=== PATIENT | female | born 1980 | race Caucasian/White ===

== ENCOUNTER 2018-01-11 05:11 | Inpatient (IN) ==
[~2018-01-11 05:11] MED LIST: Naloxone 0.4 MG/ML INJ IVP PRN
--- NOTE | 2018-01-11 05:28 | Internal Med History&Physical ---
<Michael Craven - Last Filed: 01/11/18 05:40> Date of Encounter: 01/11/18 Time of Encounter: 05:24 Internal Medicine - H&P: HPI Chief complaint: Abdominal pain Admitted From: Home Plans for Post Hospital Care: Home History of present illness: Mrs. Byers is a 37-year-old female who presented to [facility] on 01/11/18 as a transfer from [facility] for the management of acute diverticula is. Patient reports that she developed severe abdominal pain on Tuesday, located in the left side of her abdomen. While at [facility], she was diagnosed with diverticulitis based on CT scan. She reported that her pain had not improved during her stay at the hospital. She was transferred to [place] due to the fact that [facility] did not have a GI specialist. Patient reported that she was treated with IV antibiotics and was given Olpe for pain control. She reported that her pain would subside for a few hours, but would return. Pain is constant, and is exacerbated by palpation. Patient also reports intermittent nausea and vomiting. Denies having any episodes of vomiting since her transfer to [place]. She currently denies having any fever or chills. Patient had an elevated white count 11.2 at [facility]. BUN/creatinine creatinine were within normal limits. During her stay at [facility], patient was treated with ciprofloxacin 400 mg IV every 12 hours, metronidazole IV every 8 hours, Protonix 40 mg IV once a day, acetaminophen 325 mg every 4 hours for mild pain, Olpe 5/325 by mouth every 6 hours for moderate pain. Patient was seen and examined at bedside this morning. Patient reports that she feels constant pain in the left side of her abdomen. She states that she had one previous episode of diverticulitis approximately 3 years ago, which she states was a small area that was inflamed in her colon. Patient also reports a history of ileus after receiving back surgery. Patient reports that her pain has not gotten much better since it started. Has not eaten anything since Tuesday. Currently denies having any shortness of breath, fever, chills, shortness of breath, nausea, vomiting, or diaphoresis. Patient has no further complaints at this time. Past Med Surg Social Fam HX - Past Medical History Medical history: other Psychiatric history: no psych history - Past Surgical History Surgical History: cholecystectomy, herniorrhaphy, orthopedic, other, other - Social History Smoking Status: Never smoker Smokeless Tobacco Status: No Alcohol use: occasionally Drug use: none - Family History Mother Living Status: Still Living Father Living Status: Still Living Internal Medicine - H&P: Meds No Known Home Drugs 01/26/16 [History] 3 Allergy/AdvReac Type Severity Reaction Status Date / Time codeine Allergy Rash Verified 12/01/15 09:43 morphine Allergy See Verified 01/11/18 03:38 Comments midazolam [From Versed] AdvReac See Verified 01/26/16 06:50 Comments All Systems PM: A 10-system review of systems was performed and is negative for pertinent findings except as documented above in the HPI. - Constitutional Constitutional: no chills, no fever(s), no night sweats - EENT Eyes: no change in vision, no discharge, no pain, no photophobia Ears: no ear discharge, no ear pain, no tinnitus Nose, mouth and throat: no dysphagia, no nasal discharge, no neck pain, no sore throat - Cardiovascular Cardiovascular ROS IM: no chest pain, no diaphoresis, no dyspnea, no lightheadedness, no palpitations, no syncope - Respiratory Respiratory: no cough, no dyspnea, no wheezing, no excessive phlegm production - Gastrointestinal Gastrointestinal: abdominal pain, no diarrhea, no hematemesis, no hematochezia, no melena, no nausea, no vomiting - Genitourinary Genitourinary: no change in urinary stream, no dysuria, no flank pain, no hematuria - Musculoskeletal Musculoskeletal ROS IM: no numbness, no tingling - Integumentary Integumentary IM: no rash, no unusual bruising - Neurological Neurological ROS: no confusion, no convulsions, no focal weakness, no numbness, no tingling, no tremor(s) - Hematologic/Lymphatic Hematologic/Lymphatic: no easy bruising - Constitutional Vitals: Temp Pulse Resp BP Pulse Ox 97.9 F 59 14 105/65 97 01/11/18 03:14 01/11/18 03:14 01/11/18 03:14 01/11/18 03:14 01/11/18 03:14 General appearance: Present: mild distress, A&O X 3 - Head Head exam: Present: atraumatic, normocephalic - Eye Eye exam: Present: PERRL, conjuntiva pink, sclera anicteric Pupils: Present: PERRL - Neck Neck exam general surgery: Present: supple, trachea midline. Absent: lymphadenopathy - Respiratory Respiratory exam: Present: CTAB. Absent: accessory muscle use, rales, rhonchi, wheezes - Cardiovascular Cardiovascular exam: Present: RRR, +S1, +S2. Absent: diastolic murmur, gallop, rubs, systolic murmur - GI/Abdominal GI/Abdominal exam: Present: normal bowel sounds, soft, tenderness, no peritoneal signs. Absent: distended Additional comments: Tenderness in the left upper quadrant and left lower quadrant - Extremities Exam Extremities exam: Present: warm, radial pulses palpable and symmetrical. Absent : calf tenderness, cyanotic, pedal edema - Neurological Exam Neurological exam: Present: CN II-XII intact, oriented X3, no focal deficits. Absent: pronater drift, facial droop, speech deficit - Skin Skin exam: Present: dry, intact - Assessment and plan (1) Diverticulitis Current Visit: Yes Status: Acute Assessment and plan: During her stay at [facility], patient receives an abdominal CT scan with results as follows: - Patient is status post cholecystectomy - Liver, spleen, pancreas, and adrenal glands were normal - No hydronephrosis or nephrolithiasis - Tiny cysts present in the kidneys - Scattered diverticula throughout the colon - Moderate inflammatory changes in the sigmoid colon - Moderate fat stranding around the colon - Wall thickening - Inflammation appears to be centered along the anterior aspect of the wall of the colon - Possible inflammatory diverticula in this area - No abscess or extraluminal gas is seen. Plan: - CBC, CMP have been ordered - Ciprofloxacin 400 mg IV every 12 - Metronidazole IV every 8 - Zofran - Sublingual oxycodone for pain control - Consult GI - Time Spent With Patient Total time spent is greater than 50% in coordination of care (as documented) at patient's floor/unit and/or counseling patient: <ValentinElif - Last Filed: 01/11/18 07:09> Date of Encounter: 01/11/18 Internal Medicine - H&P: HPI History of present illness: Ms. Byers is a 37 year old female All Systems PM: A 10-system review of systems was performed and is negative for pertinent findings except as documented above in the HPI. - Constitutional Vitals: Temp Pulse Resp BP Pulse Ox 97.3 F L 62 14 103/63 97 01/11/18 06:59 01/11/18 06:59 01/11/18 06:59 01/11/18 06:59 01/11/18 06:59 Internal Med - H&P Results - Labs CBC & Chem 7: 01/11/18 05:24 01/11/18 05:24 Labs: Short CBC 01/11/18 Range/Units 05:24 WBC 4.1 L (4.3-11.1) K/mcL Hgb 11.1 L (11.5-15.4) g/dL Hct 32.6 L (35.3-44.9) % Plt Count 171 (140-400) K/mcL Neutrophils # 2.2 (1.6-8.9) K/mcL BMP 01/11/18 05:24 Sodium 136 Potassium 3.6 Chloride 107 Carbon Dioxide 25 BUN 7 Creatinine 0.57 L Glucose 78 Calcium 7.8 L Liver Function 01/11/18 Range/Units 05:24 Total Bilirubin 0.4 (0.3-1.0) mg/dL AST 57 H (13-39) Units/L ALT 94 H (7-52) Units/L Alkaline Phosphatase 97 (34-104) Units/L Albumin 3.3 L (3.5-5.7) g/dL - Attending Attestation I have seen and examined this patient independently. I have discussed the with resident physician Dr. Craven regarding the management plan. Agree with the documentation. - Time Spent With Patient Total time spent is greater than 50% in coordination of care (as documented) at patient's floor/unit and/or counseling patient:
[2018-01-11] MEDS: 0.9 % Sodium Chloride 1,000 ML IVC SCH ×2 (05:38→23:42)
[2018-01-11] MEDS ORDERED: OXYCODONE Oral CONC 10 MG/0.5 ML ORAL.SYG SL PRN (05:42)
[2018-01-11] MEDS ORDERED: Ondansetron 4 MG/2 ML VIAL IVP PRN (05:43)
[2018-01-11 05:54] LABS: Eosinophils % 0.7 %; Hematocrit 32.6 % (35.3-44.9); Hemoglobin 11.1 g/dL (11.5-15.4); Immature Granulocytes % 0.5 % (0-4); Lymphocytes # 1.5 K/mcL (0.6-4.6); Lymphocytes % 36.9 %; Mean Corpuscular Hemoglobin 31.3 pg (28.0-33.3); Mean Corpuscular Volume 91.8 fL (83.0-100.0); Mean Platelet Volume 11.5 fL (9.4-12.4); Monocytes # 0.3 K/mcL (0.0-1.3); Monocytes % 7.3 %; Neutrophils # 2.2 K/mcL (1.6-8.9); Platelet Count 171 K/mcL (140-400); Red Blood Count 3.55 M/mcL (3.82-4.97); Red Cell Distribution Width 12.5 % (11.5-14.5); Segmented Neutrophils % 53.6 %
[2018-01-11 06:12] LABS: Alanine Aminotransferase 94 Units/L (7-52); Albumin 3.3 g/dL (3.5-5.7); Albumin/Globulin Ratio 1.5 (1.1-2.2); Alkaline Phosphatase 97 Units/L (34-104); Aspartate Amino Transferase 57 Units/L (13-39); BUN/Creatinine Ratio 12 (6-26); Bilirubin,Total 0.4 mg/dL (0.3-1.0); Blood Urea Nitrogen 7 mg/dL (6-20); Calcium 7.8 mg/dL (8.6-10.3); Carbon Dioxide 25 mEq/L (23-29); Chloride 107 mEq/L (98-107); Globulin 2.2 g/dL (2.4-3.5); Glucose 78 mg/dL (70-105); Osmolality,Calculated 279 (280-300); Potassium 3.6 mEq/L (3.5-5.1); Sodium 136 mEq/L (136-145); Total Protein 5.5 g/dL (6.4-8.9); eGFR For African Americans > 60 (> 60); eGFR For Non-African Americans > 60 (> 60)
[2018-01-11] MEDS: MetroNIDAZOLE 500 MG/100 ML 500 MG/100 ML BAG IVPB SCH ×3 (09:15→23:43)
[2018-01-11] MEDS: Ketorolac 30 MG/ML VIAL IVP PRN ×2 (10:16→19:57)
[2018-01-11] MEDS: Pantoprazole 40 MG VIAL IVP SCH (10:16)
[2018-01-11] MEDS ORDERED: Ketorolac 30 MG/ML VIAL IVP SCH (12:00)
--- NOTE | 2018-01-11 17:48 | Gastroenterology Consult Note ---
<Semaj Garciaroger Epperson - Last Filed: 01/11/18 17:44> Date of Encounter: 01/11/18 Time of Encounter: 09:45 - Assessment and plan (1) Diverticulitis Status: Acute Assessment and plan: Continue, IVF, antb, can advance diet as tolerated, colonoscopy as outpatient in 4-6 weeks. - Time Spent With Patient Total time spent is greater than 50% in coordination of care (as documented) at patient's floor/unit and/or counseling patient: GI History of Present Illness - Data of Consult Patient: new to practice Consult date: 01/11/18 Requesting Physician: Franklin Corona MD - Consult Narrative Reason for consult: diverticulitis History of present illness: Mrs. Byers is a 37-year-old female who presented to [facility] on 01/11/18 as a transfer from [facility] for the management of acute diverticulitis. Patient reports that she developed severe abdominal pain on Tuesday, located in the left side of her abdomen. She was diagnosed with diverticuliteis and treated with iV antibiotics but was not improving so she was transferred to [place] be seen by GI. She reported that her pain would subside for a few hours , but would return. Pain is constant, and is exacerbated by palpation. Patient also reports intermittent nausea and vomiting. Denies having any episodes of vomiting since her transfer to [place]. She currently denies having any fever or chills. She states that she had one previous episode of diverticulitis approximately 3 years ago, which she states was a small area that was inflamed in her colon. Patient also reports a history of ileus after receiving back surgery. Patient reports that her pain has not gotten much better since it started. Has not eaten anything since Tuesday. Currently denies having any shortness of breath, fever, chills, shortness of breath, nausea, vomiting, or diaphoresis. Patient has no further complaints at this time. Colonoscopy: denies EGD: denirichard NSAIDS/ASA: toradol Anticoagulants: none Past Med Surg Social Fam HX - Past Medical History Medical history: other Psychiatric history: no psych history - Past Surgical History Surgical History: cholecystectomy, herniorrhaphy, orthopedic, other, other - Social History Smoking Status: Never smoker Smokeless Tobacco Status: No Alcohol use: occasionally Drug use: none - Family History Mother Living Status: Still Living Father Living Status: Still Living Review of Systems: GI: as per [facility]: denies fever, has some chills EYES: denies yellow discoloration ENT: denies pain with swallowing or difficulty swallowing CARDIO: denies chest pain, palpitations RESP: No Shortness of breath with exertion : denies change in color of urine NEURO: denies any weakness HEME: Denies any bruising MS: denies joint pain, joint swelling or back pain. DERM: denies rash or itching PSYCH: Denies history of anxiety or depression - Constitutional Vitals: Temp Pulse Resp BP Pulse Ox 97.9 F 62 14 108/64 98 01/11/18 15:52 01/11/18 15:52 01/11/18 15:52 01/11/18 15:52 01/11/18 15:52 Exam: CONSTITUTIONAL:~alert, no acute distress.~HEAD:~normocephalic.~EYES:~no jaundice.~NECK:~no obvious swelling.~HEART:~regular rate and rhythm, no murmurs. ~LUNGS:~bilateral good air entry.~ABDOMEN:~non distended, soft, tender bilateral lower quadrants, no masses palpable, no organomegaly.~RECTAL EXAM:~ Deferred.~EXTREMITIES:~no clubbing, cyanosis or edema.~SKIN:~no stigmata of chronic liver disease.~NEUROLOGIC:~no obvious focal defect.~~~~ Results - Labs CBC & Chem 7: 01/11/18 05:24 01/11/18 05:24 Labs: Last Result Calcium 7.8 mg/dL (8.6-10.3) L 01/11/18 05:24 Entire Visit Hgb 11.1 g/dL (11.5-15.4) L 01/11/18 05:24 Hct 32.6 % (35.3-44.9) L 01/11/18 05:24 Total Bilirubin 0.4 mg/dL (0.3-1.0) 01/11/18 05:24 AST 57 Units/L (13-39) H 01/11/18 05:24 ALT 94 Units/L (7-52) H 01/11/18 05:24 Consult Discharge Plan - Plan Instructions: Ibuprofen (By mouth), Metronidazole (By mouth), Ondansetron (By mouth), Pantoprazole (By mouth) Referrals: Antonella Ramsey CNP [Primary Care Provider] - 01/13/18 1:00 pm Bernard Sutherland MD [Partnered Physician] - (We have web requested you an appointment with Dr. Sutherland's office. They should be calling you soon. Thank you! ) Prescriptions: Ibuprofen [Motrin] 600 mg PO Q8HR PRN 5 Days #15 tab PRN Reason: Pain metroNIDAZOLE [Flagyl] 500 mg PO BID 7 Days #14 tablet Ondansetron ODT [Zofran ODT] 4 mg PO TID PRN 5 Days #15 tab.rapdis PRN Reason: Nausea Pantoprazole Sodium [Protonix] 20 mg PO DAILY #30 tab <Joel Crow - Last Filed: 01/18/18 05:49> Date of Encounter: 01/11/18 - Time Spent With Patient Total time spent is greater than 50% in coordination of care (as documented) at patient's floor/unit and/or counseling patient: GI History of Present Illness - Data of Consult Requesting Physician: Franklin Corona MD - Consult Narrative History of present illness: Ms. Byers is a 37 year old female - Constitutional Vitals: Temp Pulse Resp BP Pulse Ox 98.5 F 63 16 106/72 98 01/12/18 10:46 01/12/18 10:46 01/12/18 10:46 01/12/18 10:46 01/12/18 10:46 Results - Labs CBC & Chem 7: 01/11/18 05:24 01/11/18 05:24 Labs: Last Result Calcium 7.8 mg/dL (8.6-10.3) L 01/11/18 05:24 Entire Visit Hgb 11.1 g/dL (11.5-15.4) L 01/11/18 05:24 Hct 32.6 % (35.3-44.9) L 01/11/18 05:24 Total Bilirubin 0.4 mg/dL (0.3-1.0) 01/11/18 05:24 AST 57 Units/L (13-39) H 01/11/18 05:24 ALT 94 Units/L (7-52) H 01/11/18 05:24 - Attending Attestation Agree with treatment for acute diverticulitis. Follow up as outpatient colonsocopy. I have personally performed a face to face evaluation on this patient. I have reviewed and agree with the care plan. History and Exam by me shows:
--- NOTE | 2018-01-11 18:24 | Internal Med Progress Note ---
Date of Encounter: 01/11/18 Time of Encounter: 18:22 - Assessment and plan (1) Diverticulitis Current Visit: Yes Status: Acute Assessment and plan: GI consult it Continue IV fluids Continue antibiotics Advance diet as tolerated Outpatient colonoscopy in 4-6 weeks (2) Chronic back pain Current Visit: Yes Status: Acute Qualifiers: Back pain location: low back pain Back pain laterality: unspecified Sciatica presence: unspecified whether sciatica present Qualified Code(s): M54.5 - Low back pain; G89.29 - Other chronic pain; G89.29 - Other chronic pain (3) Nausea Current Visit: Yes Status: Acute Assessment and plan: Zofran as needed - Subjective Interval history: Patient with poor pain control overnight. She was started on every 6 hours when necessary Toradol and is doing much better now. She has tolerated a few ice chips this afternoon and if her pain remains controlled we will try some clear liquids at dinner. She has no nausea, vomiting, chest pain, fevers, chills. She states her pain will subside for a few hours and then return. She states it is constant and exacerbated when palpated. She states this is her second attack of diverticulitis. Answered her questions and she is aware of the plan for an outpatient EGD per gastroenterology. - Constitutional Vitals: Temp Pulse Resp BP Pulse Ox 97.9 F 62 14 108/64 98 01/11/18 15:52 01/11/18 15:52 01/11/18 15:52 01/11/18 15:52 01/11/18 15:52 General appearance: Present: cooperative, mild distress, A&O X 3, pleasant, answers questions appropriately - Head Head exam: Present: atraumatic, normocephalic - Eye Eye exam: Present: PERRL, conjuntiva pink, sclera anicteric Pupils: Present: PERRL - Neck Neck exam general surgery: Present: supple, trachea midline. Absent: lymphadenopathy - Respiratory Respiratory exam: Present: CTAB. Absent: accessory muscle use, rales, rhonchi, wheezes - Cardiovascular Cardiovascular exam: Present: RRR, +S1, +S2. Absent: diastolic murmur, gallop, rubs, systolic murmur - GI/Abdominal GI/Abdominal exam: Present: guarding, normal bowel sounds, soft, tenderness, no peritoneal signs. Absent: distended - Extremities Exam Extremities exam: Present: warm, radial pulses palpable and symmetrical. Absent : calf tenderness, cyanotic, pedal edema - Neurological Exam Neurological exam: Present: alert, CN II-XII intact, normal gait, oriented X3, no focal deficits. Absent: pronater drift, facial droop, speech deficit - Skin Skin exam: Present: dry, intact, normal color, warm Internal Medicine: Result - Labs CBC & Chem 7: 01/11/18 05:24 01/11/18 05:24 Labs: Short CBC 01/11/18 Range/Units 05:24 WBC 4.1 L (4.3-11.1) K/mcL Hgb 11.1 L (11.5-15.4) g/dL Hct 32.6 L (35.3-44.9) % Plt Count 171 (140-400) K/mcL Neutrophils # 2.2 (1.6-8.9) K/mcL BMP 01/11/18 05:24 Sodium 136 Potassium 3.6 Chloride 107 Carbon Dioxide 25 BUN 7 Creatinine 0.57 L Glucose 78 Calcium 7.8 L Liver Function 01/11/18 Range/Units 05:24 Total Bilirubin 0.4 (0.3-1.0) mg/dL AST 57 H (13-39) Units/L ALT 94 H (7-52) Units/L Alkaline Phosphatase 97 (34-104) Units/L Albumin 3.3 L (3.5-5.7) g/dL Consult Discharge Plan - Plan Referrals: Antonella Ramsey CNP [Primary Care Provider] -
[2018-01-12] MEDS: MetroNIDAZOLE 500 MG/100 ML 500 MG/100 ML BAG IVPB SCH (09:35)
[2018-01-12] MEDS: Pantoprazole 40 MG VIAL IVP SCH (09:35)
[2018-01-12 10:48] VITALS: BP 106/72
--- NOTE | 2018-01-12 14:47 | Discharge Summary ---
- NOTES TO OUTPATIENT PROVIDER Notes to Outpatient Provider: Patient admitted from outside hospital with diverticulitis which has responded to IV antibiotics. She will be discharged on oral antibiotics. She will follow-up with gastroenterology [place] to schedule a colonoscopy in 4-6 weeks. She is tolerating full liquids. Her pain is much better. She would like to go home. Will be off work until Tuesday. Advance to soft diet, do not take NSAIDS on empty stomach. Orders not resulted at time of discharge: Pending orders 01/13/18 04:00 Basic Metabolic Panel AM 0400 Complete Blood Count w/o Diff [HEME] AM 0400 Date of Encounter: 01/12/18 Time of Encounter: 14:45 - Discharge Diagnosis (1) Diverticulitis Priority: Primary Status: Acute (2) Chronic back pain Priority: Primary Status: Chronic Qualifiers: Back pain location: low back pain Back pain laterality: unspecified Sciatica presence: unspecified whether sciatica present Qualified Code(s): M54.5 - Low back pain; G89.29 - Other chronic pain; G89.29 - Other chronic pain (3) Nausea Priority: Primary Status: Resolved Hospital course: Ms. Byers is a 37 year old female who was transferred from [facility] for management of acute diverticulitis. She had developed severe abdominal pain and was admitted to [facility]. This diagnosis was based on CT scan findings. Her pain did not improve during her stay at that hospital so she was transferred to [place] to see a GI specialist. She has received IV antibiotics and [place] for pain control. After arrival here antibiotics were continued, she was made nothing by mouth, she was given IV fluids. GI was consulted. She was switched to Toradol for pain control. She is tolerating a full liquid diet. GI has recommended follow-up in their office in 2 weeks with that colonoscopy be scheduled in 4-6 weeks. She will be discharged on a soft diet. She will be given a prescription for Flagyl, Zofran, 600 mg of Motrin, and Protonix. Patient verbalized understanding her discharge instructions and will follow-up with GI as directed. Discharge discussed with: patient, nurse, senior solutions consultant - Time Spent with Patient Total time spent providing and/or coordinating discharge services: Less than 30 minutes - Discharge Medications Prescriptions: Ibuprofen [Motrin] 600 mg PO Q8HR PRN 5 Days #15 tab PRN Reason: Pain metroNIDAZOLE [Flagyl] 500 mg PO BID 7 Days #14 tablet Ondansetron ODT [Zofran ODT] 4 mg PO TID PRN 5 Days #15 tab.rapdis PRN Reason: Nausea Pantoprazole Sodium [Protonix] 20 mg PO DAILY #30 tab Home Medications: Ibuprofen [Motrin] 600 mg PO Q8HR PRN 5 Days #15 tab 01/12/18 [Rx] Ondansetron ODT [Zofran ODT] 4 mg PO TID PRN 5 Days #15 tab.rapdis 01/12/18 [Rx] Pantoprazole Sodium [Protonix] 20 mg PO DAILY #30 tab 01/12/18 [Rx] metroNIDAZOLE [Flagyl] 500 mg PO BID 7 Days #14 tablet 01/12/18 [Rx] Allergies/Adverse Reactions: 3 Allergy/AdvReac Type Severity Reaction Status Date / Time codeine Allergy Rash Verified 12/01/15 09:43 morphine Allergy See Verified 01/11/18 03:38 Comments midazolam [From Versed] AdvReac See Verified 01/26/16 06:50 Comments Date of admission: 01/11/18 05:11 Primary care physician: Antonella Ramsey, Consults: 01/11/18 05:45 Consult to Gastroenterology [CONS] Routine Consulting Provider: Gastroenterology Nery Reason for Consult: diverticulitits Call Completed: No Discharging clinician: Missy Varner Anticipated date of discharge: 01/12/18 - Constitutional Vitals: Temp Pulse Resp BP Pulse Ox 98.5 F 63 16 106/72 98 01/12/18 10:46 01/12/18 10:46 01/12/18 10:46 01/12/18 10:46 01/12/18 10:46 General appearance: Present: cooperative, A&O X 3, pleasant, no acute distress, answers questions appropriately - Head Head exam: Present: atraumatic, normocephalic - Eye Eye exam: Present: PERRL, conjuntiva pink, sclera anicteric Pupils: Present: PERRL - Neck Neck exam general surgery: Present: supple, trachea midline. Absent: lymphadenopathy - Respiratory Respiratory exam: Present: CTAB. Absent: accessory muscle use, rales, rhonchi, wheezes - Cardiovascular Cardiovascular exam: Present: RRR, +S1, +S2. Absent: diastolic murmur, gallop, rubs, systolic murmur - GI/Abdominal GI/Abdominal exam: Present: normal bowel sounds, soft, no peritoneal signs. Absent: distended, guarding, tenderness - Extremities Exam Extremities exam: Present: warm, radial pulses palpable and symmetrical. Absent : calf tenderness, cyanotic, pedal edema - Neurological Exam Neurological exam: Present: CN II-XII intact, oriented X3, no focal deficits. Absent: pronater drift, facial droop, speech deficit - Skin Skin exam: Present: dry, intact, normal color, warm - Patient Status Disposition: Home, Self-Care Functional capacity at discharge: independent ambulation Overall status at discharge: patient is progressing back to baseline - Discharge Instructions Follow Up With: Antonella Ramsey CNP [Primary Care Provider] - - Diet and Activity Activity: resume usual activities as tolerated Diet: other (soft diet as tolerated)
== END 2018-01-12 16:43 | disposition home or self-care (01) | DRG 392 ==
LOC: 3BNU
PROVIDERS: ADMIT Internal Medicine; ATTEND Family Medicine

== ENCOUNTER 2019-11-05 03:12 | Inpatient (IN) ==
[2019-11-05] MEDS ORDERED: 0.9 % Sodium Chloride 1,000 ML IVC ONE (03:56)
[2019-11-05 04:10] LABS: Basophils % 0.3 %; Eosinophils % 0.1 %; Hematocrit 40.8 % (35.3-44.9); Hemoglobin 13.8 g/dL (11.5-15.4); Immature Granulocytes % 0.3 % (0-4); Lymphocytes # 1.6 K/mcL (0.6-4.6); Lymphocytes % 10.7 %; Mean Corpuscular HGB Conc 33.8 g/dL (31.6-35.5); Mean Corpuscular Hemoglobin 30.9 pg (28.0-33.3); Mean Corpuscular Volume 91.5 fL (83.0-100.0); Mean Platelet Volume 11.7 fL (9.4-12.4); Monocytes # 1.2 K/mcL (0.0-1.3); Monocytes % 8.3 %; Neutrophils # 11.7 K/mcL (1.6-8.9); Platelet Count 239 K/mcL (140-400); Red Blood Count 4.46 M/mcL (3.82-4.97); Red Cell Distribution Width 13.2 % (11.5-14.5); Segmented Neutrophils % 80.3 %; White Blood Count 14.5 K/mcL (4.3-11.1)
[2019-11-05 04:27] LABS: BUN/Creatinine Ratio 24 (6-26); Blood Urea Nitrogen 17 mg/dL (6-20); Calcium 9.5 mg/dL (8.6-10.3); Carbon Dioxide 24 mEq/L (23-29); Chloride 100 mEq/L (98-107); Glucose 112 mg/dL (70-105); Osmolality,Calculated 282 (280-300); Sodium 135 mEq/L (136-145); eGFR For African Americans > 60 (> 60); eGFR For Non-African Americans > 60 (> 60)
[2019-11-05 04:29] LABS: Troponin I < 0.03 ng/mL (< 0.04)
[2019-11-05 04:43] LABS: Thyroid Stimulating Hormone 0.684 mcIU/mL (0.340-5.600)
[2019-11-05] MEDS ORDERED: Naloxone 0.4 MG/ML INJ IVP PRN (08:17)
[2019-11-05 10:05] LABS: Adenovirus Not Detected (Not Detect); Bordetella Pertussis Not Detected (Not Detect); Chlamydophila pneumoniae Not Detected (Not Detect); Coronavirus 229E Not Detected (Not Detect); Coronavirus HKU1 Not Detected (Not Detect); Coronavirus NL63 Not Detected (Not Detect); Coronavirus OC43 Not Detected (Not Detect); Human Metapneumovirus Not Detected (Not Detect); Human Rhinovirus/Enterovirus Not Detected (Not Detect); Influenza A Subtype 2009 H1 Not Detected (Not Detect); Influenza B Not Detected (Not Detect); Mycoplasma pneumoniae Not Detected (Not Detect); Parainfluenza Virus 1 Not Detected (Not Detect); Parainfluenza Virus 2 Not Detected (Not Detect); Parainfluenza Virus 3 Not Detected (Not Detect); Parainfluenza Virus 4 Not Detected (Not Detect); Respiratory Syncytial Virus Not Detected (Not Detect)
[2019-11-05 10:32] LABS: Albumin 3.9 g/dL (3.5-5.7); Albumin/Globulin Ratio 1.3 (1.1-2.2); Bilirubin,Direct 0.2 mg/dL (0.0-0.2); Bilirubin,Indirect 0.6 mg/dL (0.0-1.0); Bilirubin,Total 0.8 mg/dL (0.3-1.0); Globulin 2.9 g/dL (2.4-3.5); Total Protein 6.8 g/dL (6.4-8.9)
[2019-11-05 11:59] LABS: Bilirubin,Urine Negative (Negative); Blood,Urine Negative (Negative); Clarity,Urine Slightly Cloudy (Clear); Color,Urine Yellow (Yellow); Glucose,Urine (UA) Normal (Normal); Ketones,Urine Negative (Negative); Leukocyte Esterase,Urine Negative (Negative); Nitrite,Urine Negative (Negative); Protein,Urine 30 mg/dL (Neg-Trace); Urobilinogen,Urine Normal (Normal)
[2019-11-05 12:10] LABS: Bacteria,Urine Many per hpf (None-Few); Hyaline Casts,Urine None Seen per lpf (None-Few); Squamous Epithelial Cell,Urine Many per lpf (None-Few)
[2019-11-05] MEDS: 0.9 % Sodium Chloride 1,000 ML IVC SCH (12:21)
[2019-11-05] MEDS: MetroNIDAZOLE 500 MG/100 ML 500 MG/100 ML BAG IVPB SCH ×3 (12:21→23:51)
[2019-11-05 12:41] LABS: RBC,Urine 0-3 per hpf (0-3); Renal Epithelial Cells,Urine Few per hpf (None-Few)
[2019-11-05 12:42] LABS: Transitional Epi Cells,Urine Few per hpf (None-Few)
[2019-11-05] MEDS: Ondansetron 4 MG/2 ML VIAL IVP PRN (17:09)
[2019-11-05] MEDS: Acetaminophen 325 MG TABLET PO PRN (18:27)
[2019-11-05 21:22] LABS: Amphetamine Screen,Urine Negative ng/mL (Cutoff=1000); Barbiturate Screen,Urine Negative ng/mL (Cutoff=200); Benzodiazepines Screen,Urine Negative ng/mL (Cutoff=200); Cannabinoid Screen,Urine Negative ng/mL (Cutoff = 50); Cocaine Screen,Urine Negative ng/mL (Cutoff= 300); Opiate Screen,Urine Negative ng/mL (Cutoff=300); Phencyclidine Screen,Urine Negative ng/mL (Cutoff=25)
[2019-11-06 03:44] LABS: Basophils % 0.3 %; Eosinophils % 0.3 %; Hematocrit 35.4 % (35.3-44.9); Immature Granulocytes % 0.3 % (0-4); Lymphocytes # 1.3 K/mcL (0.6-4.6); Lymphocytes % 10.8 %; Mean Corpuscular HGB Conc 33.9 g/dL (31.6-35.5); Mean Corpuscular Hemoglobin 30.7 pg (28.0-33.3); Mean Corpuscular Volume 90.5 fL (83.0-100.0); Mean Platelet Volume 11.3 fL (9.4-12.4); Monocytes # 0.9 K/mcL (0.0-1.3); Monocytes % 7.7 %; Neutrophils # 9.4 K/mcL (1.6-8.9); Platelet Count 200 K/mcL (140-400); Red Blood Count 3.91 M/mcL (3.82-4.97); Red Cell Distribution Width 13.2 % (11.5-14.5); Segmented Neutrophils % 80.6 %; White Blood Count 11.6 K/mcL (4.3-11.1)
[2019-11-06 04:05] LABS: BUN/Creatinine Ratio 15 (6-26); Blood Urea Nitrogen 10 mg/dL (6-20); Calcium 8.7 mg/dL (8.6-10.3); Carbon Dioxide 23 mEq/L (23-29); Chloride 104 mEq/L (98-107); Glucose 99 mg/dL (70-105); Magnesium 1.8 mg/dL (1.6-2.6); Osmolality,Calculated 281 (280-300); Phosphorous 2.3 mg/dL (2.7-4.5); Potassium 3.6 mEq/L (3.5-5.1); Sodium 136 mEq/L (136-145); eGFR For African Americans > 60 (> 60); eGFR For Non-African Americans > 60 (> 60)
[2019-11-06] MEDS: 0.9 % Sodium Chloride 1,000 ML IVC SCH ×3 (04:35→23:54)
[2019-11-06] MEDS: Ondansetron 4 MG/2 ML VIAL IVP PRN ×3 (04:40→22:18)
[2019-11-06] MEDS: MetroNIDAZOLE 500 MG/100 ML 500 MG/100 ML BAG IVPB SCH ×3 (07:11→23:46)
[2019-11-06] MEDS: *HR* HYDROcodone/Acet 5/325 mg TABLET PO PRN ×2 (11:04→22:18)
[2019-11-06] MEDS: Acetaminophen 325 MG TABLET PO PRN (17:31)
[2019-11-07 03:58] LABS: Basophils % 0.4 %; Eosinophils # 0.2 K/mcL (0.0-0.6); Eosinophils % 2.3 %; Hematocrit 34.7 % (35.3-44.9); Hemoglobin 11.8 g/dL (11.5-15.4); Immature Granulocytes % 0.4 % (0-4); Lymphocytes # 1.3 K/mcL (0.6-4.6); Lymphocytes % 17.1 %; Mean Corpuscular Hemoglobin 30.4 pg (28.0-33.3); Mean Corpuscular Volume 89.4 fL (83.0-100.0); Mean Platelet Volume 11.3 fL (9.4-12.4); Monocytes # 0.6 K/mcL (0.0-1.3); Monocytes % 7.9 %; Neutrophils # 5.6 K/mcL (1.6-8.9); Platelet Count 181 K/mcL (140-400); Red Blood Count 3.88 M/mcL (3.82-4.97); Red Cell Distribution Width 12.8 % (11.5-14.5); Segmented Neutrophils % 71.9 %; White Blood Count 7.8 K/mcL (4.3-11.1)
[2019-11-07 04:14] LABS: BUN/Creatinine Ratio 18 (6-26); Blood Urea Nitrogen 11 mg/dL (6-20); Calcium 8.4 mg/dL (8.6-10.3); Carbon Dioxide 22 mEq/L (23-29); Chloride 104 mEq/L (98-107); Glucose 76 mg/dL (70-105); Osmolality,Calculated 280 (280-300); Phosphorous 2.6 mg/dL (2.7-4.5); Potassium 3.6 mEq/L (3.5-5.1); Sodium 136 mEq/L (136-145); eGFR For African Americans > 60 (> 60); eGFR For Non-African Americans > 60 (> 60)
[2019-11-07] MEDS: Ondansetron 4 MG/2 ML VIAL IVP PRN ×3 (07:09→21:47)
[2019-11-07] MEDS: MetroNIDAZOLE 500 MG/100 ML 500 MG/100 ML BAG IVPB SCH ×3 (07:09→23:50)
[2019-11-07] MEDS: Acetaminophen 325 MG TABLET PO PRN ×2 (09:03→15:50)
[2019-11-07] MEDS ORDERED: 0.9 % Sodium Chloride 1,000 ML IVC SCH (10:33)
[2019-11-07] MEDS: *HR* HYDROcodone/Acet 5/325 mg TABLET PO PRN ×2 (12:19→21:47)
[2019-11-07] MEDS: *HR* Heparin 5,000 UNIT/ML VIAL SQ SCH (16:59)
[2019-11-07] MEDS: 0.9 % Sodium Chloride 1,000 ML IVC SCH (21:46)
[2019-11-08] MEDS: 0.9 % Sodium Chloride 1,000 ML IVC SCH ×2 (00:18→07:55)
[2019-11-08 01:27] LABS: Adenovirus Not Detected (Not Detect); Bordetella Pertussis Not Detected (Not Detect); Chlamydophila pneumoniae Not Detected (Not Detect); Coronavirus 229E Not Detected (Not Detect); Coronavirus HKU1 Not Detected (Not Detect); Coronavirus NL63 Not Detected (Not Detect); Coronavirus OC43 Not Detected (Not Detect); Human Metapneumovirus DETECTED (Not Detect); Human Rhinovirus/Enterovirus Not Detected (Not Detect); Influenza A Subtype 2009 H1 Not Detected (Not Detect); Influenza B Not Detected (Not Detect); Mycoplasma pneumoniae Not Detected (Not Detect); Parainfluenza Virus 1 Not Detected (Not Detect); Parainfluenza Virus 2 Not Detected (Not Detect); Parainfluenza Virus 3 Not Detected (Not Detect); Parainfluenza Virus 4 Not Detected (Not Detect); Respiratory Syncytial Virus Not Detected (Not Detect)
[2019-11-08] MEDS: Ondansetron 4 MG/2 ML VIAL IVP PRN (03:51)
[2019-11-08] MEDS: Acetaminophen 325 MG TABLET PO PRN (03:51)
[2019-11-08] MEDS: *HR* Heparin 5,000 UNIT/ML VIAL SQ SCH (05:18)
[2019-11-08 07:28] VITALS: BP 101/66
[2019-11-08] MEDS: MetroNIDAZOLE 500 MG/100 ML 500 MG/100 ML BAG IVPB SCH (07:58)
[2019-11-08] MEDS ORDERED: *HR* Promethazine 25 MG/ML VIAL IVP ONE (08:19)
[2019-11-08] MEDS ORDERED: GI Cocktail 40 ML EACH PO ONE (09:44)
== END 2019-11-08 13:14 | disposition home or self-care (01) | DRG 392 ==
LOC: 3BNU 03:12 → EMEROOARM 03:12 → SUATTDRO 05:42 → 3BNU 06:20
PROVIDERS: ADMIT Family Medicine; ATTEND Internal Medicine